=== PATIENT | female | born 1950 | race Two or more races ===

== ENCOUNTER 2025-04-23 08:45 | Inpatient (IN) | payer OTHER ==
[~2025-04-23] VITALS: Ht 149.9 cm; Wt 59.0 kg
[2025-04-23] MEDS ORDERED: SIMVASTATIN5 MG (09:09)
[2025-04-23] MEDS ORDERED: XELPROS2.5 ML OP (09:10)
[2025-04-23] MEDS ORDERED: ISTALOL2.5 ML OTIC (09:10)
[2025-04-23 09:16] VITALS: BP 152/65
[2025-04-23 09:50] LABS: BASO % 1.4 % (0.1-1.2); EOS # 0.29 (0.04-0.54); EOS % 4.1 % (0.7-7.0); HEMATOCRIT 43.9 % (34.1-44.9); HEMOGLOBIN 14.6 g/dL (11.2-15.7); LYMPH # 1.79 (1.18-3.74); LYMPH % 25.2 % (19.3-53.1); MEAN CORPUSCULAR HEMOGLOBIN 29.9 pg (25.6-32.2); MONO # 0.46 (0.24-0.82); MONO % 6.5 % (4.7-12.5); NEUT # 4.43 (1.56-6.13); NEUT % 62.4 % (34.0-71.1); PLATELET COUNT 306 K/uL (163-369); RED BLOOD COUNT 4.89 M/uL (3.93-5.22); RED CELL DISTRIBUTION WIDTH 12.1 % (11.6-14.4)
[2025-04-23 10:05] LABS: INR 1.01; PARTIAL THROMBOPLASTIN TIME 27.5 SECONDS (22.0-34.0)
[2025-04-23 10:31] LABS: PH,URINE 7.5 (5.0-8.0); URINE APPEARANCE Clear; URINE BILIRRUBIN Negative (NEGATIVE); URINE BLOOD Negative; URINE COLOR Yellow; URINE GLUCOSE Negative (NEGATIVE); URINE KETONE Negative (NEGATIVE); URINE LEUKOCYTE Trace; URINE NITRATE Negative; URINE PROTEIN Negative (NEGATIVE); URINE UROBILINOGEN 0.2 E.U./dl
[2025-04-23 10:35] LABS: URINE EPITHELIAL CELLS 3.3 uL (0.0-38.8); URINE RBC 6.6 uL (0.0-20.8); URINE WBC 8.2 uL (0.0-23.2)
[2025-04-23 10:54] LABS: BILIRUBIN TOTAL 0.47 mg/dL (0.3-1.2); CALCIUM 9.4 mg/dL (8.5-10.1); CREATININE SERUM 0.56 mg/dL (0.55-1.02); GFR 105.82; GLOBULINA 4.1 G/DL (2.4-3.5); POTASSIUM 4.12 mEq/L (3.5-5.1); TOTAL PROTEIN 8.1 gm/dL (6.4-8.2)
[2025-04-29] MEDS ORDERED: METRONIDAZOLE/SODIUM CHLORIDE 500 MG/100 ML PIGGYBACK IV ONE (09:10)
[2025-04-29] MEDS ORDERED: CEFTRIAXONE SODIUM 2,000 MG VIAL ONE (09:10)
[2025-04-29] MEDS ORDERED: BUPIVACAINE HCL/Mpf 0.5% 10ML VIAL ONE (10:07)
[2025-04-29] MEDS ORDERED: HEMOSTATIC MATRIX 1 KIT KIT TOP ONE (10:07)
[2025-04-29] MEDS ORDERED: LIDOCAINE HCL 1%/EPINEPHRINE 20ML VIAL IJ ONE (10:07)
[2025-04-29] MEDS ORDERED: POVIDONE-IODINE 118 ML BOTT TOP ONE (10:07)
[2025-04-29] MEDS ORDERED: DIBUCAINE 30 GM TUBE ONE (10:07)
[2025-04-29] MEDS ORDERED: SUGAMMADEX SODIUM 200 MG/2 ML VIAL IV ONE (11:10)
[2025-04-29] MEDS ORDERED: MORPHINE SULFATE 4 MG/ML CARTRIDGE IV PRN (11:15)
[2025-04-29] MEDS ORDERED: ONDANSETRON HCL 2 MG/ML VIAL IV PRN (11:15)
[2025-04-29] MEDS ORDERED: 0.9 % SODIUM CHLORIDE 1,000 ML IV SCH (11:15)
[2025-04-29] MEDS ORDERED: DEXTROSE 50 % IN WATER 0.5 G/ML VIAL IV PRN (11:15)
[2025-04-29] MEDS ORDERED: OxyCODONE HCL 5 MG TABLET (ROXICODONE) PO PRN (11:15)
[2025-04-29] MEDS ORDERED: HYOSCYAMINE SULFATE 0.125 MG TAB.SUBL SL SCH (13:00)
[2025-04-29] MEDS ORDERED: MORPHINE SULFATE 4 MG/ML VIAL IV ONE (13:20)
[2025-04-29] MEDS ORDERED: ACETAMINOPHEN 500 MG GEL..CAP PO SCH (14:00)
[2025-04-29 14:39] VITALS: BP 143/78; O2SAT 95
[2025-04-29 15:25] LABS: ALBUMIN 4.2 gm/dL (3.4-5.0); CALCIUM 9.4 mg/dL (8.5-10.1); CREATININE SERUM 0.58 mg/dL (0.55-1.02); GFR 101.62; PHOSPHOROUS 2.9 mg/dL (2.5-4.9); POTASSIUM 4.12 mEq/L (3.5-5.1)
[2025-04-29 15:32] LABS: BASO % 0.5 % (0.1-1.2); EOS # 0.13 (0.04-0.54); EOS % 1.6 % (0.7-7.0); HEMATOCRIT 43.6 % (34.1-44.9); HEMOGLOBIN 14.5 g/dL (11.2-15.7); LYMPH # 1.64 (1.18-3.74); LYMPH % 20.2 % (19.3-53.1); MEAN CORPUSCULAR HEMOGLOBIN 29.9 pg (25.6-32.2); MONO # 0.44 (0.24-0.82); MONO % 5.4 % (4.7-12.5); NEUT # 5.83 (1.56-6.13); NEUT % 72.1 % (34.0-71.1); PLATELET COUNT 306 K/uL (163-369); RED BLOOD COUNT 4.85 M/uL (3.93-5.22); RED CELL DISTRIBUTION WIDTH 12.2 % (11.6-14.4)
[2025-04-29 17:00] VITALS: BP 123/72; O2SAT 93
[2025-04-29] MEDS ORDERED: METRONIDAZOLE/SODIUM CHLORIDE 500 MG/100 ML PIGGYBACK IV SCH (17:00)
[2025-04-29] MEDS ORDERED: SIMVASTATIN 20 MG TABLET PO SCH (17:00)
[2025-04-29] MEDS ORDERED: POLYETHYLENE GLYCOL 3350 17 GM BLIST.PACK PO SCH (17:00)
[2025-04-29] MEDS ORDERED: GABAPENTIN 300 MG CAPSULE PO SCH (17:00)
[2025-04-29] MEDS ORDERED: FAMOTIDINE/PF 20 MG/2 ML VIAL IV PUSH SCH (21:00)
[2025-04-29] MEDS ORDERED: CELECOXIB 200 MG CAPSULE PO SCH (21:00)
[2025-04-30] VITALS: BP 102/60; O2SAT 95
[2025-04-30 06:54] LABS: BASO % 0.3 % (0.1-1.2); EOS # 0.11 (0.04-0.54); EOS % 1.1 % (0.7-7.0); HEMATOCRIT 38.5 % (34.1-44.9); HEMOGLOBIN 12.9 g/dL (11.2-15.7); LYMPH # 2.05 (1.18-3.74); LYMPH % 20.4 % (19.3-53.1); MEAN CORPUSCULAR HEMOGLOBIN 30.2 pg (25.6-32.2); MONO # 1.06 (0.24-0.82); MONO % 10.5 % (4.7-12.5); NEUT # 6.77 (1.56-6.13); NEUT % 67.4 % (34.0-71.1); PLATELET COUNT 242 K/uL (163-369); RED BLOOD COUNT 4.27 M/uL (3.93-5.22); RED CELL DISTRIBUTION WIDTH 12.1 % (11.6-14.4)
[2025-04-30 07:30] LABS: ALBUMIN 3.2 gm/dL (3.4-5.0); CALCIUM 8.2 mg/dL (8.5-10.1); CREATININE SERUM 0.56 mg/dL (0.55-1.02); GFR 105.82; MAGNESIUM 1.8 mg/dL (1.8-2.4); POTASSIUM 3.63 mEq/L (3.5-5.1)
[2025-04-30 08:00] VITALS: BP 117/63; O2SAT 98
[2025-04-30] MEDS ORDERED: TRAM1TAB98 PO (08:06)
[2025-04-30] MEDS ORDERED: ENOXAPARIN SODIUM 40 MG/0.4 ML SYRINGE SUBCUTANEO SCH (17:00)
[2025-05-01] MEDS ORDERED: ENOXAPARIN SODIUM 40 MG/0.4 ML SYRINGE SUBCUTANEO SCH (09:00)
== END 2025-04-30 11:30 | disposition home or self-care (01) | DRG 349 ==
LOC: SURH 04-29 08:45 → O/R 04-29 09:07 → SURH 04-29 09:07
PROVIDERS: ADMIT Surgery; ATTEND Surgery
PROC: 3E0T3BZ Introduction of Anesthetic Agent into Peripheral Nerves and Plexi, Percutaneous Approach (ICD-10-PCS; 2025-04-29)
PROC: 0DBP7ZZ Excision of Rectum, Via Natural or Artificial Opening (ICD-10-PCS; principal; 2025-04-29 18:45)
DX: D12.8 Benign neoplasm of rectum (principal); D37.5 Neoplasm of uncertain behavior of rectum
CPT/HCPCS: 0184T; 64430